=== PATIENT | male | born 1970 | race Caucasian/White ===

== ENCOUNTER 2021-05-23 16:27 | Emergency (ER) | payer BC, OTHER ==
[~2021-05-23] VITALS: Ht 175.3 cm; Wt 88.6 kg
[2021-05-23] MEDS ORDERED: TETANUS AND DIPHTHERIA TOX/PF 0.5 ML VIAL. VAX IM ONE (17:15)
[2021-05-23] MEDS ORDERED: DIPH,PERTUSS(ACELL),TET VAC/PF 0.5 ML SYRINGE. VAX IM ONE (17:28)
[2021-05-23] MEDS: LIDOCAINE 1% Multi-Dose 20 ML VIAL. IJ ONE (17:34)
[2021-05-23] MEDS: DIPH,PERTUSS(ACELL),TET VAC/PF 0.5 ML SYRINGE. VAX IM ONE (17:35)
--- NOTE | 2021-05-23 17:46 | PHYS DOC ---
Past History Past Surgical History: No Surgical History (ANALILIA BAEZA APRN) Alcohol Use: None (ANALILIA BAEZA APRN) General Adult EDM: Chief Complaint: LACERATION/AVULSION HPI: HPI: Patient is a 50-year-old female presents to the ER today for a laceration to his left second finger that occurred while he was using a crankshaft grinder and it slipped and cut his finger. Patient denies any current pain, decreased range of motion, decreased sensation to finger. Patient is unsure of when he had his last tetanus shot. (ANALILIA BAEZA APRN) Review of Systems: Review of Systems: 14 body systems of the review of systems have been reviewed. See HPI for pertinent positive and negative responses, otherwise all other systems are negative, nonpertinent or noncontributory (ANALILIA BAEZA APRN) Current Medications: Current Meds: Current Medications Medications (Trade) Dose Ordered Sig/Patricia Start Time Stop Time Status Last Admin Dose Admin Diphtheria/ Pertussis/Tetanus Vacc (ADACEL TDap SYRINGE) 0.5 ml ONCE ONCE 05/23/21 17:30 05/23/21 17:31 DC 05/23/21 17:35 0.5 ML Lidocaine HCl 20 ml 1X ONCE 05/23/21 17:30 05/23/21 17:31 DC 05/23/21 17:34 20 ML Tetanus/ Diphtheria Toxoids Adsorbed (Tenivac Vial) 0.5 ml ONCE ONCE 05/23/21 17:15 05/23/21 17:30 DC (ANALILIA BAEZA APRN) Allergies: Allergies: Allergies Coded Allergies Type Severity Reaction Last Updated Verified amoxicillin Allergy Unknown 05/23/21 Yes (ANALILIA BAEZA APRN) Physical Exam: PE: Constitutional: Well developed, well nourished, no acute distress, non-toxic appearance. [] HENT: Normocephalic, atraumatic Neck: Normal range of motion, no stridor Cardiovascular: Normal peripheral perfusion Lungs & Thorax: Normal work of breathing, no tachypnea Skin: Warm, dry, no erythema, no rash. 1 cm x 2 mm laceration noted to the left second finger with no active bleeding. [] Extremities: No tenderness, no cyanosis, no clubbing, ROM intact, no edema. Left second finger: Normal sensation, neurologically intact, good range of motion. [] Neurologic: Alert and oriented X 3, normal motor function, normal sensory function, no focal deficits noted. [] Psychologic: Affect normal, judgement normal, mood normal. [] (ANALILIA BAEZA APRN) Current Patient Data: Vital Signs: Vital Signs Date Time Temp Pulse Resp B/P (MAP) Pulse Ox O2 Delivery O2 Flow Rate FiO2 05/23/21 17:08 98.5 81 20 120/77 95 (ANALILIA BAEZA APRN) EKG: EKG: [] (ANALILIA BAEZA APRN) Radiology/Procedures: Radiology/Procedures: [] (ANALILIA BAEZA APRN) Heart Score: C/O Chest Pain: No Risk Factors: Risk Factors: DM, Current or recent (<one month) smoker, HTN, HLP, family history of CAD, obesity. Risk Scores: Score 0 - 3: 2.5% MACE over next 6 weeks - Discharge Home Score 4 - 6: 20.3% MACE over next 6 weeks - Admit for Clinical Observation Score 7 - 10: 72.7% MACE over next 6 weeks - Early Invasive Strategies (ANALILIA BAEZA APRN) Course & Med Decision Making: Course & Med Decision Making Pertinent Labs and Imaging studies reviewed. (See chart for details) Patient is a 50-year-old male who was seen in the ER today for a laceration. The laceration was cleansed with water and chlorhexidine. Patient denies any current pain. Patient was given a tetanus shot in the ER today. The laceration was repaired with [] sutures. Patient tolerated procedure. Patient given inf ormation regarding wound care and patient is agreeable to plan.. (ANALILIA BAEZA APRN) Course & Med Decision Making Did not see or evaluate patient. Agree with SENIOR TECHNICAL MANAGER's work-up and disposition per note. (KASEY BRANDT MD) Dragon Disclaimer: Dragon Disclaimer: This electronic medical record was generated, in whole or in part, using a voice recognition dictation system. (ANALILIA BAEZA APRN) Departure Departure: Impression: Primary Impression: Laceration of finger of left hand Qualified Codes: S61.211A - Laceration without foreign body of left index finger without damage to nail, initial encounter Disposition: HOME / SELF CARE / HOMELESS Condition: GOOD Referrals: JESSIKA JOY (PCP) Patient Instructions: Laceration Care, Adult Additional Instructions: Thank you for choosing [facility] and allowing me to participate in your care. You had a laceration to your left second finger tip that was repaired with edges. As we have discussed, the treatment includes keeping the wound clean and dry, occasional Polysporin and bandage, and monitoring for signs of infection. Please have sutures removed in approximately 7 to 10 days, you can return to the ER follow-up with your primary care provider. Monitor for signs of infection which includes redness, warmth, swelling, drainage. Do not submerge your hand in water for at least 48 hours. Please follow up with your primary care provider tomorrow regarding your ER visit. If your symptoms worsen or you develop any of the signs of infection, worsening of your pain, decreased movement of your finger or decreased sensation, please return. EMERGENCY DEPARTMENT GENERAL DISCHARGE INSTRUCTIONS Thank you for coming to [facility] (ED) today and trusting us with you care. We trust that you had a positivie experience in our Emergency Department. If you wish to speak to the department management, you may call the director at [phone]. YOUR FOLLOW UP INSTRUCTIONS ARE FOLLOWS: 1. Do you have a private Doctor? If you do not have a private doctor, please ask for a resource list of physicians or clinics that may be able to assist you with follow up care. 2. The Emergency Physician has interpreted your x-rays. The X-Ray specialist will also review them. If there is a change in the findings, you will be notified in 48 hours when at all possible. 3. A lab test or culture has been done, your results will be reviewed and you will be notified if you need a change in treatment. ADDITIONAL INSTRUCTIONS AND INFORMATION: 1. Your care today has been supervised by a physician who is specially trained in emergency care. Many problems require more than one evaluation for a complete diagnosis and treatment. We recommend that you schedule your follow up appointment as recommended to ensure complete treatment of you illness or injury. If you are unable to obtain follow up care and continue to have a problem, or if your condition worsens, we recommend that you return to the ED. 2. We are not able to safely determine your condition over the phone nor are we able to give sound medical advice over the phone. For these safety reasons, if you call for medical advice we will ask you to come to the ED for further evaluation. 3. If you have any questions regarding these discharge instructions please call the ED at [phone]. SAFETY INFORMATION: In the interest of safety, wellness, and injury prevention; we encourage you to wear your sealbelt, if you smoke; quite smoking, and we encourage family to use a protective helmet for bicycling and other sporting events that present an increased risk for head injury. IF YOUR SYMPTOMS WORSEN OR NEW SYMPTOMS DEVELOP, OR YOU HAVE CONCERNS ABOUT YOUR CONDITION; OR IF YOUR CONDITION WORSENS WHILE YOU ARE WAITING FOR YOUR FOLLOW UP APPOINTMENT; EITHER CONTACT YOUR PRIMARY CARE DOCTOR, THE PHYSICIAN WHOSE NAME AND NUMBER YOU WERE GIVEN, OR RETURN TO THE ED IMMEDIATELY. Laceration Repair Lac Repair Indication: Laceration left second finger Procedure: The patient was placed in the appropriate position and 1% lidocaine anesthesia was placed around the left second finger the area was then cleansed with chlorhexidine. The laceration was closed with 5-0 Ethilon, 2 sutures placed. The wound area was then dressed with nonadherent dressing. Total repaired wound length: 1 cm The patient tolerated the procedure tolerated Complications: None (ANALILIA BAEZA APRN) ANALILIA BAEZA APRN May 23, 2021 17:46 KASEY BRANDT MD May 23, 2021 18:45
[2021-05-23 17:58] VITALS: BP 182/94
== END 2021-05-23 18:35 | disposition home or self-care (01) ==
LOC: ER 16:27
DX: S61.211A Laceration without foreign body of left index finger without damage to nail, initial encounter (principal); Z88.0 Allergy status to penicillin; W01.0XXA Fall on same level from slipping, tripping and stumbling without subsequent striking against object, initial encounter; Y93.89 Activity, other specified; Y92.89 Other specified places as the place of occurrence of the external cause; Y99.8 Other external cause status
CPT/HCPCS: 12001; 90471; 90715; 99283-25